=== PATIENT | male | born 1930 | race Caucasian/White ===

== ENCOUNTER 2017-07-11 15:47 | Emergency (ER) | payer OTHER ==
[2017-07-11 16:16] LABS: #Eosinphils 0.1 thou/uL (0.0-0.7); #Monocytes 0.4 thou/uL (0.11-0.59); #Neutrophils 3.2 thou/uL (1.40-6.50); %Eosinophils 3.1 % (0.0-10.0); %Lymphocytes 20.8 % (21.0-51.0); %Monocytes 9.1 % (0.0-10.0); Hematocrit 40.5 % (42.0-52.0); Mean Platelet Volume 6.6 fL (7.4-10.4); Red Blood Cell (RBC) Count 4.86 mill/uL (4.70-6.10); White Blood Cell (WBC) Count 4.8 thou/uL (4.8-10.8)
--- NOTE | 2017-07-11 16:20 | RAD ---
PORTABLE CHEST ONE VIEW: Date: 07-11-19 Time: 4:19 p.m. History: Chest pain, elevated blood sugar. FINDINGS: The heart size is normal. The lungs are expanded without focal areas of consolidation, pneumothorax, or pleural effusions. IMPRESSION: No acute process. POS: [id number]
[2017-07-11 16:32] LABS: ALT (SGPT) 22 U/L (8-55); AST (SGOT) 18 U/L (5-34); Alkaline Phosphatase 63 U/L (40-150); Anion Gap 12 mmol/L (10-20); BUN (Urea Nitrogen) 24 mg/dL (8.4-25.7); Bilirubin, Total 0.5 mg/dL (0.2-1.2); CK (CPK) 283 U/L (30-200); Calc. Creatinine Clearance 0 mL/min (70-130); Carbon Dioxide 22 mmol/L (23-31); Chloride 108 mmol/L (98-107); Estimated GFR-MDRD 40; Globulin 2.6 g/dL (2.4-3.5); Lipase 16 U/L (8-78); Protein, Total 6.7 g/dL (5.8-8.1); Troponin I Less than 0.010 ng/mL (< 0.028)
[2017-07-11] MEDS ORDERED: Insulin Regular 300 UNITS/3 ML VIAL ONE (16:44)
[2017-07-11 17:26] LABS: Bilirubin Negative (Negative); Blood, Urine Trace (Negative); Glucose, Urine (Dipstick) >=1000 mg/dL (Negative); Ketone, Urine Negative (Negative); Nitrite Negative (Negative); Protein, Urine (Dipstick) 30 mg/dL (Neg-Trace); Urobilinogen 0.2 mg/dL (0.2-1.0)
[2017-07-11 17:28] LABS: Bacteria/HPF Rare-Few HPF (None Seen); RBC/HPF 0-3 HPF (0-3); Squamous Epithelial None Seen HPF (0-3); WBC/HPF None Seen HPF (0-3)
== END 2017-07-11 17:48 | disposition home or self-care (01) ==
LOC: SCSER 15:47
DX: E11.65 Type 2 diabetes mellitus with hyperglycemia (principal); E78.5 Hyperlipidemia, unspecified; F32.9 Major depressive disorder, single episode, unspecified; I10 Essential (primary) hypertension; Z79.899 Other long term (current) drug therapy; Z79.84 Long term (current) use of oral hypoglycemic drugs
CPT/HCPCS: 36416; 71010; 80053; 81003; 81015; 82550; 82553; 83690; 83880; 84484; 85025; 93005; 96360; 96361; 96372; J1815